=== PATIENT | female | born 1965 | race Caucasian/White ===

== ENCOUNTER 2024-09-14 06:35 | Emergency (ER) | payer BC, SELFPAY ==
[2024-09-14 07:02] VITALS: BP 107/70
[2024-09-14 08:03] LABS: % Basophils 0.3 % (0-2); % Eosinophils 0.1 % (0-6); % Immature Granulocytes 0.4 % (0-0.5); % Lymphocytes 13.7 % (20.5-51.1); % Monocytes 8.2 % (1.7-9.3); % Neutrophils 77.3 % (42.2-75.2); Absolute Lymphocytes 1.2 10^3/uL (1.2-3.4); Absolute Monocytes 0.7 10^3/uL (0.1-0.6); Hematocrit 38.7 % (37.0-47.0); Hemoglobin 13.5 g/dL (12.0-16.0); Mean Corp Hgb Conc. 34.9 g/dL (33.0-37.0); Mean Corpuscular Hgb 30.2 pg (27.0-31.0); Mean Corpuscular Volume 86.6 fL (81.0-99.0); Mean Platelet Volume 9.3 fL (7.4-10.4); Nucleated Red Blood Cells % 0 %; Platelet Count 204 10^3/uL (130-400); Red Blood Cell Count 4.47 10^6/uL (4.20-5.40); Red Cell Dist. Width 12.7 % (11.5-14.5)
[2024-09-14 08:15] LABS: COVID-19 Antigen Positive (Negative)
[2024-09-14 09:17] VITALS: BP 114/62
--- NOTE | 2024-09-14 10:30 | ED.GENMED ---
History of Present Illness
General
Chief Complaint: Breathing Problem
Source: patient
Exam Limitations: none
Time Seen by Provider: 09/14/24 10:11
Nursing documentation reviewed up to this point in time: agreed with
History of Present Illness
History of Present Illness:
Patient is a 58-year-old female who presents to the ER for evaluation. Patient started with nasal congestion cough nausea vomiting diarrhea since Sundeep kati, 4 days ago. in addition she has been having general body aches and back pain.
She denies any shortness of breath. She has been vomiting and not been able to tolerate any oral fluids.
She has taken ibuprofen which did not help her back pain. She denies any actual shortness of breath.
Past History
Past History
ED Past Medical History: Other (chronic Pancreatitis)
ED Past Surgical History: Cholecystectomy and Other (ERCP at [place], left oophorectomy and hysterectomy)
Social History
Tobacco: Non-smoker
Alcohol: None
Personal:
Living: with family
Employment: Employed
Family History
Family History: Other (Her brother gets anaphylaxis with bee stings )
Review of Systems
Review of Systems
Allergies reviewed?: Yes
All Other Systems: ROS reviewed and negative except as documented in HPI and ROS
Constitutional: Reports fatigue and chills
Respiratory: Reports cough; Denies trouble breathing
Cardiac: Reports no symptoms
ABD/GI: Reports nausea, vomiting and diarrhea; Denies abdominal pain
Musculoskeletal: Reports back pain
Skin: Reports no symptoms
Neurological: Reports no symptoms
Psychiatric: Reports no symptoms
Phy Exam
General Physical Exam
General Presentation: no apparent distress
General age: appears stated age
General Skin: warm and dry
General Habitus: normal
General Hydration: appears well hydrated
Cardiovascular Exam
Cardiovascular Exam: regular rate/rhythm, no murmur and normal peripheral pulses
Pulmonary Exam
Pulmonary Exam: lungs clear and other (+ cough )
Neurological Exam
Neurological Exam: alert and oriented x3
Musculoskeletal Exam
Musculoskeletal Exam: full ROM
Skin Exam
Skin Exam: normal color and warm/dry
Psychiatric Exam
Psychiatric Exam: normal mood/affect
Scores
Heart Failure Risk
Heart Failure Risk Score: Not Applicable
Sepsis
Sepsis Screening
Sepsis Assessment: Sepsis Ruled Out
Sepsis Screen
Sepsis Screen: Sepsis Ruled Out
Date: 09/14/24
Time: 12:31
Course
Orders/Labs/Results
Orders:
Orders
09/14/24 07:08
Electrocardiogram (*1) Urgent
Reason for Study: Other
Other Reason for Exam: Respiratory Distress
Cardiac Monitoring- Treatment ONCE
EKG- Treatment ONCE
IV Insert/Care/Rem.- Treatment PRN
CR Chest - 2 Views Urgent
Comment:
Reason For Exam: respiratory distress
O2 Therapy [RESP] Urgent
Titrate/Wean O2 to maintain O2 sat greater than (%): 93
Special Instructions: TO MAINTAIN CONTINUOUS O2 SATS >/= 93%
Pulse Ox/cont/shift [RESP] Urgent
Quantity: 1
Special Instructions: continuous pulse ox
09/14/24 07:27
COVID-19 Antigen Urgent
Source: Nasal Swab
Influenza A+B Rapid Molecular Urgent
ZION Source: Nasal Swab
Specimen Description:
09/14/24 07:38
Complete Blood Count/With Diff Urgent
09/14/24 10:41
Ketorolac [Toradol] 15 mg IV NOW STA
Ondansetron Injectable [Zofran] 4 mg IV NOW STA
09/14/24 10:42
0.9% Sodium Chloride 1000 ml [Nss] 1,000 ml IV BOLUS
09/14/24 11:07
Basic Metabolic Panel Urgent
09/14/24 11:35
Potassium Urgent
Abnormal Lab Results
09/14/24 09/14/24 09/14/24
07: 07:38 11:07
Absolute Neuts (auto) 7.0 H 10^3/uL
(1.4-6.5)
Absolute Monos (auto) 0.7 H 10^3/uL
(0.1-0.6)
Neutrophils % 77.3 H %
(42.2-75.2)
Lymphocytes % 13.7 L %
(20.5-51.1)
Carbon Dioxide 20 L mmol/L
(22-30)
SARS-CoV-2 Antigen Positive A
(Negative)
09/14/24 07:38
09/14/24 11:35
Vital Signs
Initial and Last Documented VS:
Initial Vital Signs
Temp Pulse Resp BP Pulse Ox
100.3 F 96 20 107/70 98
09/14/24 07:02 09/14/24 07:02 09/14/24 07:02 09/14/24 07:02 09/14/24 07:02
Last Documented Vital Signs
Temp Pulse Resp BP Pulse Ox
98.0 F 78 14 114/62 95
09/14/24 11:39 09/14/24 11:14 09/14/24 11:14 09/14/24 09:17 09/14/24 11:45
MDM/Problems Addressed
Differential Diagnosis Includes:
Not limited to viral syndrome bronchitis influenza COVID pneumonia
MDM/Problems Addressed:
Patient is a 58-year-old female who has been sick for several days and is positive for COVID here in the ER. She complained of nausea body aches diarrhea and back pain. She presents awake alert no acute distress her lungs are clear she is not
hypoxic. She is nontachycardic normal white count no evidence of sepsis here in the ER. Her x-ray does show however minimal airspace consolidation at the left lung base which may represent pneumonia. Given cough back pain will treat for
pneumonia. Patient was given fluids here along with Zofran and Toradol nontoxic tolerating Gatorade here in the ER. PAtient has had some relief of back pain with Toradol. She is nontoxic-appearing nonhypoxic. Dose of doxycycline given here and
send to pharmacy. Will also send dose of Zofran for nausea to patient's pharmacy.
*Critical Care Note
Total Time (30-74mins, 75-104mins- exclusive of procedures): Not Applicable
ED Attending Note
-
Portions of this chart may have been created with voice recognition software.� Occasional wrong word or��sound alike� substitutions may have occurred due to the inherent limitations of voice recognition software.
Discharge Plan
Departure
Patient Disposition: Home (Routine Discharge)
Date of Disposition: 09/14/24
Time of Disposition: 12:24
Patient with high blood pressure during this ER visit?: No
Covid-19: Not Applicable
Discharge Problem:
COVID-19, Pneumonia
Instructions: Community-acquired pneumonia in adults, COVID-19 in adults - Discharge instructions
Prescriptions:
New
doxycycline hyclate 100 mg capsule
100 mg PO BID Qty: 14 0RF
ondansetron 4 mg tablet,disintegrating
4 mg PO Q8H PRN (Reason: nausea and vomiting) Qty: 10 0RF
No Action
ketorolac 10 MG tablet
10 mg PO Q6HPRN PRN (Reason: pain) Qty: 15 0RF
Referrals:
Malcom Worrell DO [Family Provider] -
Activity Restrictions/Additional Instructions:
As discussed stay well-hydrated. You tested positive for COVID as well as pneumonia here in the ER. you were given a prescription of antibiotics for pneumonia.. This was sent to pharmacy. take as directed for the next week. Also a prescription
for Zofran nausea medicine was sent to your pharmacy take as directed. Clear fluids for the next 24 hours followed by bland solid foods as tolerated. You may take ibuprofen for fever chills body aches. Follow-up closely with your family doctor
next several days return if any worsening of symptoms including difficulty breathing or any further concerns.
Interventions
Interventions:
*Risk Screen - Suicide Last Done: 09/14/24 07:02
*General Assessment Last Done: 09/14/24 07:02
*Neglect/Abuse Screening Last Done: 09/14/24 07:02
ED- Fall Risk Assessment Last Done: 09/14/24 07:02
*ED COVID-19 Vaccine History Last Done: 09/14/24 07:02
ED- Cardiac Assessment Last Done: 09/14/24 10:33
ED-Musculoskeletal Assessment Last Done: 09/14/24 11:53
ED- Pulmonary Assessment Last Done: 09/14/24 11:45
Discharge Date and Time
Print Language: [place] CITIZ[place]
[2024-09-14 10:55] VITALS: BMI 27.5
[2024-09-14] MEDS: TORADOL 15 MG IV (11:31)
[2024-09-14] MEDS: NSS 1000 IV (11:32)
[2024-09-14] MEDS: ZOFRAN 4 MG IV (11:32)
[2024-09-14 11:34] VITALS: BP 118/62
[2024-09-14 11:59] LABS: Blood Urea Nitrogen 17 mg/dl (7-17); Calcium 8.9 mg/dl (8.4-10.2); Carbon Dioxide 20 mmol/L (22-30); Chloride 104 mmol/L (98-107); Estimated Creatinine Clearance 102 ml/min; Glucose 91 mg/dl (70-99); Sodium 135 mmol/L (135-145); eGFR > 60.00
[2024-09-14 12:00] VITALS: BP 115/56
[2024-09-14 12:12] LABS: Potassium 3.9 mmol/L (3.5-5.1)
[2024-09-14] MEDS: VIBRAMYCIN 100 MG PO (12:34)
[2024-09-14 12:50] VITALS: BP 115/56
== END 2024-09-14 12:51 | disposition home or self-care (01) ==
LOC: EMR 06:35
PROVIDERS: Emergency Medicine; EMERGENCY PHYSICIAN Nurse Practitioner; FAMILY PHYSICIAN Internal Medicine
DX: U07.1 COVID-19 (principal); J18.9 Pneumonia, unspecified organism; Z11.52 Encounter for screening for COVID-19
CPT/HCPCS: 99285; 96374; 96375; 96361; 71046; 80048; 84132; 85025; 87502; 87811; 93005

== ENCOUNTER → 2025-03-21 18:02 | Outpatient (REF) | payer OTHER, SELFPAY | LOC: WDC 18:02 | PROVIDERS: ATTENDING PHYSICIAN Internal Medicine | DX: Z12.31 Encounter for screening mammogram for malignant neoplasm of breast (principal) | CPT/HCPCS: 77063; 77067 ==

== ENCOUNTER → 2025-03-28 08:53 | Outpatient (REF) | payer OTHER, SELFPAY | LOC: WDC 08:53 | PROVIDERS: ATTENDING PHYSICIAN Internal Medicine | DX: R92.8 Other abnormal and inconclusive findings on diagnostic imaging of breast (principal) | CPT/HCPCS: 76642 ==

== ENCOUNTER 2025-05-31 06:35 | Emergency (ER) | payer OTHER, SELFPAY ==
[2025-05-31 06:46] VITALS: BP 113/83
--- NOTE | 2025-05-31 07:42 | ED.GENMED ---
History of Present Illness
General
Chief Complaint: Fall
Source: patient
Exam Limitations: none
Time Seen by Provider: 05/31/25 06:58
Nursing documentation reviewed up to this point in time: agreed with
History of Present Illness
History of Present Illness:
see MDM
Past History
Past History
ED Past Medical History: Other (chronic Pancreatitis)
ED Past Surgical History: Cholecystectomy and Other (ERCP at [place] [facility], left oophorectomy and hysterectomy)
Social History
Tobacco: Non-smoker
Alcohol: None
Personal:
Living: with family
Employment: Employed
Family History
Family History: Other (Her brother gets anaphylaxis with bee stings )
Review of Systems
Review of Systems
Allergies reviewed?: Yes
All Other Systems: Not applicable
Phy Exam
Physical Exam
Physical Exam:
GENERAL: Alert , in no apparent distress
HEAD: NCAT
NECK: no midline tenderness, active ROM intact, no paraspinal muscle tenderness;
EYE: pupils equal and reactive, EOMs intact.
ENT: o/p clr, mmm. no hemotympanum
CARDIAC: Regular rate and rhythm, no edema
chest wall: superficial small abrasion 1 cm L breast tissue, no bruising, no sternal tendenress, no pleuritic pain or splinting
LUNGS: Clear breath sounds bilaterally, no acute respiratory distress, no wheezes/rales/rhonchi
ABDOMEN: Soft, without focal tenderness, no r/g, no cvat
NEUROLOGICAL: Alert and oriented, no focal neuro deficits, CN intact, 5/5 strength, sensation intact
SKIN: Warm and dry,
MUSCULOSKELETAL: R hip bruising anterior just distal to inguinal region with supeficial tenderness
able to passively and actively range the hip
right anterior knee swelling and bruising with patellar tenderness
no effusion
ball of R foot with mild tendneress, pain with movement of 1ST MTP joint
no bruising
normal pulses
no radicular symptoms
back nontender
sensation intact
PSYCH: Normal and appropriate interaction.
Course
Orders/Labs/Results
Orders:
Orders
05/31/25 07:29
CR Foot - Right Min 3 Views Urgent
Comment:
Reason For Exam: right great toe/distal metatarsal pain
CR Knee- Right 4 Or More View* Urgent
Comment:
Reason For Exam: fall anterior knee pain
CR Wrist - Right Min 3 Views Urgent
Comment:
Reason For Exam: fall R wrist pain
Hip, Right 2-3 Views [CR Hip - RT w/wo Pel 2-3 Vw*] Urgent
Comment:
Reason For Exam: right hip pain and bruising, fall
Include a pelvis x-ray?: Yes
05/31/25 08:34
Ibuprofen [Motrin] 600 mg PO NOW STA
Vital Signs
Initial and Last Documented VS:
Initial Vital Signs
Temp Pulse Resp BP Pulse Ox
36.5 C 78 20 113/83 97
05/31/25 06:46 05/31/25 06:46 05/31/25 06:46 05/31/25 06:46 05/31/25 06:46
Last Documented Vital Signs
Temp Pulse Resp BP Pulse Ox
36.5 C 75 18 115/80 98
05/31/25 06:46 05/31/25 09:10 05/31/25 09:10 05/31/25 09:10 05/31/25 09:10
MDM/Problems Addressed
Differential Diagnosis Includes:
SEE mdm
MDM/Problems Addressed:
Note:
CHIEF COMPLAINT(S)
- Right-sided pain and foot pain after a fall
HISTORY OF PRESENT ILLNESS
The patient is a 55-year-old female who presents with pain in her R hip, knee and foot after a mechanical fall down 5 steps last night. The patient states, 'I was putting herbs out for a sitter when a rodent ran across my feet.' In response, she
'jumped and stumbled down about five steps' from a deck. The patient landed primarily on her right side, reporting that her left breast absorbed someof the impact but then she fell primarily on R leg. She did not hit her head. The pain is localized
mainly on the right side, particularly in the hip, knee and the ball of the foot. The patient describes the foot pain as 'a shooting pain and tingling,' especially when bearing weight. The patient denies any back or ankle pain. She took three
ibuprofen tablets before bed and one more at 12 AM today for pain relief. No other medications were taken. The patient was able to get up by herself without assistance and did not seek medical attention last night as she did not feel it was critical.
She has a history of pancreatitis, which she mentions was not alcohol-induced. The pain in the knee is described with pressure and occasional grinding or popping sensations. She denies any rib pain upon breathing or the presence of significant
bruising. This morning, she notes an improvement in the soreness of her right hand, which also took some impact during her fall, initially bending back upon landing.
DENIES cp, headache, neck pain, weakness, back pain, abd pain, pleuritic pain, sob.
PLAN
- Order X-rays of the hip, pelvis, knee, and foot to evaluate for possible fractures.
- Discuss potential pain management options post-diagnostic imaging, including the consideration of anti-inflammatory medications.
DIFFERENTIAL DIAGNOSIS
The Differential Diagnosis includes, in no particular order and is not limited to:
1. Contusion or soft tissue injury
2. Fracture of the hip, pelvis, knee, or foot
3. Ligamentous injury of the knee or foot
4. Nerve impingement or neuropraxia
5. Stress fracture
6. Bursitis
7. Tendonitis
8. Plantar fasciitis
9. Arthritis
10. Gout
Disposition:
SUMMARY OF ENCOUNTER
This is a 59-year-old female with a history of chronic pancreatitis who presented after experiencing a mechanical fall down approximately five steps yesterday. During the fall, she landed primarily on her right side, also striking her left breast,
although she reported no chest or rib discomfort. The patient mainly experienced pain in the right hip, knee, and foot. She noted some paresthesia at the base of her foot on the plantar side, particularly the ball of her foot, when bearing weight.
There was noticeable bruising on the knee and hip but no significant color changes or swelling in the foot. The patient was able to bear weight with discomfort and self-administered ibuprofen for pain relief. Upon physical examination, a bruise was
observed in the right anterior inguinal region with a full range of motion in the hip. The examination of the knee revealed no joint effusion but some prepatellar soft tissue swelling. The foot displayed tenderness at the ball, but no swelling, and
sensation remained intact. The back examination was fully conducted and revealed no midline tenderness. Importantly, she did not experience any head trauma. X-rays were ordered and independently reviewed, confirming the absence of fractures, which
was consistent with the radiologists interpretation. Conservative treatment was recommended including rest, ice, and elevation, with the suggestion of crutches and a follow-up with orthopedics if pain persisted.
PLAN
- Recommend conservative management with rest, ice, compression, elevation (RICE).
- Advise the use of crutches to assist with mobility and reduce weight-bearing as needed.
- Consider follow-up with orthopedics if the patient experiences continued pain or if symptoms do not improve.
INDEPENDENT REVIEW OF LABS AND INTERPRETATION OF TESTS
- My independent interpretation of x-rays shows no fractures.
PATIENT EDUCATION AND COUNSELING
Provided information on the RICE protocol and the importance of reducing weight-bearing on the affected side to facilitate healing. Advised on the use of crutches and to seek orthopedic consultation if there was no improvement in symptoms or if pain
worsened.
FOLLOW-UP INSTRUCTIONS
Advised to follow up with orthopedics if pain persists or worsens.
MEDICATION RECONCILIATION
Patient has been self-administering ibuprofen for pain relief.
MEDICAL DECISION MAKING
- Number and Complexity of Problems Addressed: Chronic conditions affecting care include chronic pancreatitis.
- Data:
Category 1: My independent interpretation of x-rays confirmed no fractures, consistent with the radiologists report.
- Risk: Prescription medication was considered but not given after discussing the effective use of previously taken [id number] ibuprofen by the patient.
DIAGNOSIS
- Contusion of the right hip, knee, and foot (ICD-10: S70.0XXA, S80.0XXA, S90.0XXA).
- Mechanical fall (ICD-10: W19.XXXA).
*Pulse Oximetry
SaO2: 97
Oxygen Mode of Delivery: Room air
Patient hypoxic: no (98)
*Critical Care Note
Total Time (30-74mins, 75-104mins- exclusive of procedures): Not Applicable
ED Attending Note
-
Portions of this chart may have been created with voice recognition software.� Occasional wrong word or��sound alike� substitutions may have occurred due to the inherent limitations of voice recognition software.
Discharge Plan
Departure
Patient Disposition: Home (Routine Discharge)
Date of Disposition: 05/31/25
Time of Disposition: 08:48
Patient with high blood pressure during this ER visit?: No
Condition: Fair
Covid-19: Not Applicable
Discharge Problem:
Right foot sprain, Contusion of hip, right, Contusion of knee, right
Instructions: Contusion (DC), Foot sprain - ED (DC)
Prescriptions:
No Action
ketorolac 10 MG tablet
10 mg PO Q6HPRN PRN (Reason: pain) Qty: 15 0RF
doxycycline hyclate 100 mg capsule
100 mg PO BID Qty: 14 0RF
ondansetron 4 mg tablet,disintegrating
4 mg PO Q8H PRN (Reason: nausea and vomiting) Qty: 10 0RF
Referrals:
Malcom Worrell DO [Family Provider, Internal Medicine] - Follow up in 2-3 days
Stand Alone Forms: Return to Work
Activity Restrictions/Additional Instructions:
YOUR XRAYS WERE NEGATIVE FOR FRACTURES
YOU LIKELY SPRAINED YOUR FOOT AND WRIST, AND BRUISED YOUR KNEE AND HIP
ICE OFF AND ON
MOTRIN EVERY 8 HOURS NEEDED FOR PAIN
TYLENOL EVERY 6 HOURS NEEDED FOR PAIN
USE THE CRUTCHES IF YOU WISH TO HELP YOU WITH WEIGHT BEARING
FOLLOW UP WITH ORTHOPEDICS OR YOUR FAMILY DOCTOR
RETURN FOR: SEVERE PAIN, SWELLING, COLOR CHANGE, WORSENING NUMBNESS, WEAKNESS INTHE LEG, OR ANY CONCERNS.
Interventions
Interventions:
*Risk Screen - Suicide Last Done: 05/31/25 06:46
*General Assessment Last Done: 05/31/25 06:46
*Neglect/Abuse Screening Last Done: 05/31/25 06:46
*ED- Fall Risk Assessment Last Done: 05/31/25 06:46
*ED COVID-19 Vaccine History Last Done: 05/31/25 06:46
*Nursing Disposition Last Done: 05/31/25 09:13
ED-Musculoskeletal Assessment Last Done: 05/31/25 07:11
ED- Neurological Assessment Last Done: 05/31/25 07:11
ED-Skin Assessment Last Done: 05/31/25 07:11
Discharge Date and Time
Discharge Date/Time: 05/31/25 09:13
Print Language: SRI LANKAN
[2025-05-31] MEDS: MOTRIN 600 MG PO (09:06)
[2025-05-31 09:10] VITALS: BP 115/80
== END 2025-05-31 09:13 | disposition home or self-care (01) ==
LOC: EMR 06:35
PROVIDERS: EMERGENCY PHYSICIAN Emergency Medicine; FAMILY PHYSICIAN Internal Medicine
DX: S93.601A Unspecified sprain of right foot, initial encounter (principal); S70.01XA Contusion of right hip, initial encounter; W10.9XXA Fall (on) (from) unspecified stairs and steps, initial encounter; S80.01XA Contusion of right knee, initial encounter; K86.1 Other chronic pancreatitis; Z87.19 Personal history of other diseases of the digestive system; Z90.49 Acquired absence of other specified parts of digestive tract; Z90.710 Acquired absence of both cervix and uterus; Z90.721 Acquired absence of ovaries, unilateral
CPT/HCPCS: 99283; 73110; 73502; 73564; 73630